=== PATIENT | male | born 1995 | race Two or more races ===

== ENCOUNTER 2017-02-06 18:15 | Emergency (ER) | payer OTHER ==
[~2017-02-06] VITALS: Ht 165.1 cm; Wt 56.7 kg
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
--- NOTE | 2017-02-06 18:31 | NUR ---
DR MARTÍNEZ AT BEDSIDE FOR EVAL.
--- NOTE | 2017-02-06 18:45 | NUR ---
PT TO RADIOLOGY FOR HEAD AND FACIAL CT SCAN VIA [facility].
--- NOTE | 2017-02-06 20:03 | NUR ---
MEDICALLY CLEARED FOR BOOKING. D/C TO [facility] IN STABLE CONDITION.
[2017-02-06 20:05] VITALS: BP 125/66
== END 2017-02-06 20:06 ==
LOC: ER 18:21
DX: S03.01XA Dislocation of jaw, right side, initial encounter (principal); F10.20 Alcohol dependence, uncomplicated; Y04.0XXA Assault by unarmed brawl or fight, initial encounter; Y92.89 Other specified places as the place of occurrence of the external cause; Y93.89 Activity, other specified; Y99.8 Other external cause status
CPT/HCPCS: 70486-TC; A4606; Z7610